=== PATIENT | female | born 1955 | race Caucasian/White ===

== ENCOUNTER → 2017-04-10 | Outpatient (CLI) | payer OTHER ==
[~2017-04-10] MED LIST: FLEXERIL10 MG PO; HYDROCODONE BIT1 T11 PO; KEFLEX500 MG PO; MEDROL DOSEPAK4 MG PO; MOTRIN800 MG PO; VICODIN ES 7501 TAB PO
== END | disposition home or self-care (01) ==
LOC: MAMMO 11:46
DX: Z12.31 Encounter for screening mammogram for malignant neoplasm of breast (principal)

== ENCOUNTER 2017-07-03 10:33 | Emergency (ER) | payer OTHER ==
[~2017-07-03] VITALS: Ht 162.5 cm; Wt 73.9 kg
[2017-07-03] MEDS ORDERED: LIPITOR40 MG PO (10:57)
[2017-07-03 11:04] LABS: BASO % 0.3 % (0.0-1.0); EOS # 0.1 10*3/uL (0.0-0.4); EOS % 1.1 % (1.0-4.0); HEMATOCRIT 40.5 % (37.0-47.0); HEMOGLOBIN 13.6 g/dl (12.0-16.0); LYMPH # 2.8 10*3/uL (1.3-4.4); LYMPH % 23.9 % (27.0-41.0); MEAN CELL VOLUME 93.3 fl (81.0-99.0); MEAN CORPUSCULAR HGB 31.3 pg (27.0-31.0); MEAN CORPUSCULAR HGB CONC 33.6 g/dl (33.0-37.0); MEAN PLATELET VOLUME 11.3 fl (9.6-12.3); MONO # 0.6 10*3/uL (0.1-1.0); MONO % 5.5 % (3.0-9.0); NEUT # 8.1 10*3/uL (2.3-7.9); NEUT % 68.9 % (47.0-73.0); PLATELET COUNT AUTOMATED 224 10*3/uL (130-400); RED BLOOD COUNT 4.34 10*6/uL (4.10-5.10); RED CELL DISTRI WIDTH 12.9 % (0-14.5); WHITE BLOOD COUNT 11.7 10*3/uL (4.8-10.8)
[2017-07-03 11:15] LABS: PROTHROMBIN TIME 10.7 SECONDS (9.0-12.4)
[2017-07-03 11:22] LABS: ALKALINE PHOSPHATASE 68 U/L (45-117); BILIRUBIN, TOTAL 0.6 mg/dl (0.2-1.0); BUN 13 mg/dl (7-24); C-REACTIVE PROTEIN 0.53 MG/DL (0-0.3); CARBON DIOXIDE 26 mmol/L (21-32); CHLORIDE 107 mmol/L (98-107); CKMB 1.1 ng/ml (0.5-3.6); CPK 151 U/L (26-192); EST GLOM FILT AFRICAN AMERICAN > 60 ml/min; GLUCOSE 121 mg/dL (65-99); MAGNESIUM 1.9 mg/dL (1.5-2.1); POTASSIUM 3.9 mmol/L (3.5-5.1); SGOT/AST 14 IU/L (3-35); SGPT/ALT 19 U/L (12-78); SODIUM 139 mmol/L (136-145)
[2017-07-03 11:23] LABS: TROPONIN I < 0.015 ng/ml (<0.045)
[2017-07-03 12:07] LABS: BILIRUBIN NEGATIVE (NEGATIVE); BLOOD NEGATIVE (NEGATIVE); CLARITY CLEAR (CLEAR); COLOR YELLOW (YELLOW); GLUCOSE NEGATIVE (NEGATIVE); KETONE NEGATIVE (NEGATIVE); LEUKO ESTERASE TRACE (NEGATIVE); NITRITE NEGATIVE (NEGATIVE); PH 5.5 (5.0-9.0); PROTEIN NEGATIVE (NEGATIVE); SPECIFIC GRAVITY <= 1.005 (1.005-1.030); UROBILINOGEN 0.2 E.U./dl (0.2-1.0)
[2017-07-03 12:12] LABS: BACTERIA TRACE; EPITHELIAL CELLS 16-20
[2017-07-03 12:14] LABS: URINE REFLEX COMMENT YES (NO)
[2017-07-03] MEDS ORDERED: MECLIZINE HCL25 M2 PO (12:43)
== END 2017-07-03 13:16 | disposition home or self-care (01) ==
LOC: ED 10:33
PROVIDERS: Nurse Practitioner Family
DX: R42 Dizziness and giddiness (principal)

== ENCOUNTER 2018-08-12 10:59 | Emergency (ER) | payer OTHER ==
[~2018-08-12] VITALS: Ht 162.5 cm; Wt 72.6 kg
[~2018-08-12 10:59] MED LIST changes: +LIPITOR40 MG PO; +MECLIZINE HCL25 M2 PO
[2018-08-12] MEDS ORDERED: SEPTDS PO (11:05)
== END 2018-08-12 11:37 | disposition home or self-care (01) ==
LOC: ED 10:59
DX: L02.612 Cutaneous abscess of left foot (principal); R03.0 Elevated blood-pressure reading, without diagnosis of hypertension; Z79.899 Other long term (current) drug therapy

== ENCOUNTER → 2018-08-15 | Outpatient (CLI) | payer OTHER ==
[~2018-08-15] MED LIST changes: +NAPROSYN500 MG PO; +SEPTDS PO
== END | disposition home or self-care (01) ==
LOC: WOUNDCARE 03:44
DX: S90.422A Blister (nonthermal), left great toe, initial encounter (principal); E78.00 Pure hypercholesterolemia, unspecified; F17.200 Nicotine dependence, unspecified, uncomplicated; Z90.710 Acquired absence of both cervix and uterus; X58.XXXA Exposure to other specified factors, initial encounter; Y93.89 Activity, other specified; Y92.89 Other specified places as the place of occurrence of the external cause; Y99.8 Other external cause status

== ENCOUNTER → 2018-08-21 | Outpatient (CLI) | payer OTHER | END | disposition home or self-care (01) | LOC: MAMMO 08:48 | DX: Z12.31 Encounter for screening mammogram for malignant neoplasm of breast (principal) ==

== ENCOUNTER → 2018-08-22 | Outpatient (CLI) | payer OTHER | END | disposition home or self-care (01) | LOC: WOUNDCARE 00:32 | DX: S90.422D Blister (nonthermal), left great toe, subsequent encounter (principal); L03.032 Cellulitis of left toe; E78.00 Pure hypercholesterolemia, unspecified; F17.200 Nicotine dependence, unspecified, uncomplicated; Z90.710 Acquired absence of both cervix and uterus; X58.XXXD Exposure to other specified factors, subsequent encounter ==

== ENCOUNTER 2018-08-28 09:18 | Emergency (ER) | payer OTHER ==
[~2018-08-28] VITALS: Wt 72.6 kg
[~2018-08-28 09:18] MED LIST changes: -NAPROSYN500 MG PO
[2018-08-28] MEDS ORDERED: NAPROSYN500 MG PO (09:49)
== END 2018-08-28 11:39 | disposition home or self-care (01) ==
LOC: ED 09:18
DX: M19.071 Primary osteoarthritis, right ankle and foot (principal); M79.2 Neuralgia and neuritis, unspecified; Z79.899 Other long term (current) drug therapy

== ENCOUNTER 2019-01-16 08:54 | Emergency (ER) | payer OTHER ==
[~2019-01-16] VITALS: Ht 162.5 cm; Wt 72.6 kg
[~2019-01-16 08:54] MED LIST changes: +NAPROSYN500 MG PO
[2019-01-16] MEDS ORDERED: CLINDAMYCIN HC300 MG PO (09:47)
[2019-01-16] MEDS ORDERED: MEDROL DOSEPAK4 MG PO (09:47)
[2019-01-29] MEDS ORDERED: PREDNISONE20 M1 PO (10:31)
[2019-01-29] MEDS ORDERED: BENADRYL25 M2 PO (10:31)
[2019-01-29] MEDS ORDERED: LIDEX 0.05% CRE15 GM T (10:31)
== END 2019-01-16 10:15 | disposition home or self-care (01) ==
LOC: ED 08:54
DX: S00.261A Insect bite (nonvenomous) of right eyelid and periocular area, initial encounter (principal); S40.862A Insect bite (nonvenomous) of left upper arm, initial encounter; S40.861A Insect bite (nonvenomous) of right upper arm, initial encounter; L03.213 Periorbital cellulitis; Z79.899 Other long term (current) drug therapy; W57.XXXA Bitten or stung by nonvenomous insect and other nonvenomous arthropods, initial encounter; Y93.89 Activity, other specified; Y92.89 Other specified places as the place of occurrence of the external cause; Y99.9 Unspecified external cause status

== ENCOUNTER 2019-04-28 00:23 | Emergency (ER) | payer OTHER ==
[~2019-04-28] VITALS: Ht 162.5 cm; Wt 81.6 kg
[~2019-04-28 00:23] MED LIST changes: +BENADRYL25 M2 PO; +CLINDAMYCIN HC300 MG PO; +LIDEX 0.05% CRE15 GM T; +PREDNISONE20 M1 PO
[2019-04-28 01:42] LABS: BASO # 0.1 10*3/uL (0.0-0.1); BASO % 0.6 % (0.0-1.0); EOS # 0.3 10*3/uL (0.0-0.4); HEMATOCRIT 38.7 % (37.0-47.0); HEMOGLOBIN 12.8 g/dl (12.0-16.0); LYMPH # 3.3 10*3/uL (1.3-4.4); LYMPH % 35.6 % (27.0-41.0); MEAN CELL VOLUME 95.8 fl (81.0-99.0); MEAN CORPUSCULAR HGB 31.7 pg (27.0-31.0); MEAN CORPUSCULAR HGB CONC 33.1 g/dl (33.0-37.0); MEAN PLATELET VOLUME 11.1 fl (9.6-12.3); MONO # 0.9 10*3/uL (0.1-1.0); NEUT # 4.7 10*3/uL (2.3-7.9); NEUT % 50.5 % (47.0-73.0); PLATELET COUNT AUTOMATED 210 10*3/uL (130-400); RED BLOOD COUNT 4.04 10*6/uL (4.10-5.10); RED CELL DISTRI WIDTH 12.6 % (0-14.5); WHITE BLOOD COUNT 9.3 10*3/uL (4.8-10.8)
[2019-04-28 01:57] LABS: ALBUMIN 3.8 gm/dl (3.1-4.5); ALKALINE PHOSPHATASE 62 U/L (45-117); BUN 11 mg/dl (7-24); CHLORIDE 108 mmol/L (98-107); POTASSIUM 3.6 mmol/L (3.5-5.1); SGOT/AST 12 IU/L (3-35); SGPT/ALT 18 U/L (12-78); SODIUM 142 mmol/L (136-145); TOTAL PROTEIN 6.7 gm/dL (6.4-8.2)
[2019-04-28] MEDS ORDERED: PENICILLIN-VK500 MG PO (04:31)
== END 2019-04-28 04:56 | disposition home or self-care (01) ==
LOC: ED 00:23
PROVIDERS: Nurse Practitioner Family
DX: K04.7 Periapical abscess without sinus (principal); M19.90 Unspecified osteoarthritis, unspecified site; Z88.1 Allergy status to other antibiotic agents; Z79.899 Other long term (current) drug therapy

== ENCOUNTER 2019-11-01 08:39 | Emergency (ER) | payer OTHER ==
[~2019-11-01] VITALS: Ht 162.5 cm; Wt 73.5 kg
[~2019-11-01 08:39] MED LIST changes: +PENICILLIN-VK500 MG PO
[2019-11-01] MEDS ORDERED: MEDROL DOSEPAK4 MG PO (10:16)
[2019-11-01] MEDS ORDERED: Motrin,Rufen800 MG PO (10:16)
== END 2019-11-01 10:19 | disposition home or self-care (01) ==
LOC: ED 08:39
DX: M19.90 Unspecified osteoarthritis, unspecified site (principal); M79.641 Pain in right hand; M79.642 Pain in left hand; E78.00 Pure hypercholesterolemia, unspecified; F17.200 Nicotine dependence, unspecified, uncomplicated; Z88.1 Allergy status to other antibiotic agents; Z79.899 Other long term (current) drug therapy

== ENCOUNTER 2019-11-16 08:35 | Emergency (ER) | payer OTHER ==
[~2019-11-16] VITALS: Ht 162.5 cm; Wt 74.8 kg
[~2019-11-16 08:35] MED LIST changes: +Motrin,Rufen800 MG PO
[2019-11-16 09:25] LABS: BASO # 0.1 10*3/uL (0.0-0.1); BASO % 0.4 % (0.0-1.0); EOS # 0.3 10*3/uL (0.0-0.4); HEMATOCRIT 41.9 % (37.0-47.0); HEMOGLOBIN 13.8 g/dl (12.0-16.0); LYMPH # 2.3 10*3/uL (1.3-4.4); LYMPH % 15.9 % (27.0-41.0); MEAN CELL VOLUME 95.2 fl (81.0-99.0); MEAN CORPUSCULAR HGB 31.4 pg (27.0-31.0); MEAN CORPUSCULAR HGB CONC 32.9 g/dl (33.0-37.0); MEAN PLATELET VOLUME 11.1 fl (9.6-12.3); MONO # 1.3 10*3/uL (0.1-1.0); MONO % 9.1 % (3.0-9.0); NEUT # 10.2 10*3/uL (2.3-7.9); NEUT % 72.2 % (47.0-73.0); PLATELET COUNT AUTOMATED 216 10*3/uL (130-400); RED CELL DISTRI WIDTH 13.2 % (0-14.5); WHITE BLOOD COUNT 14.1 10*3/uL (4.8-10.8)
[2019-11-16 09:40] LABS: ALBUMIN 4.1 gm/dl (3.1-4.5); ALKALINE PHOSPHATASE 72 U/L (45-117); BUN 12 mg/dl (7-24); CHLORIDE 109 mmol/L (98-107); CREATININE 0.87 mg/dL (0.55-1.02); POTASSIUM 4.1 mmol/L (3.5-5.1); SGOT/AST 10 IU/L (3-35); SGPT/ALT 28 U/L (12-78); SODIUM 141 mmol/L (136-145); TOTAL PROTEIN 7.8 gm/dL (6.4-8.2); URIC ACID 5.6 mg/dL (2.6-6.0)
[2019-11-16] MEDS ORDERED: PREDNISONE10 MG PO (11:31)
[2019-11-16] MEDS ORDERED: NORCO 5-325 TA1 EACH PO (11:31)
== END 2019-11-16 11:24 | disposition home or self-care (01) ==
LOC: ED 08:35
PROVIDERS: Emergency Medicine
DX: M19.042 Primary osteoarthritis, left hand (principal); M19.041 Primary osteoarthritis, right hand; J45.901 Unspecified asthma with (acute) exacerbation; E78.00 Pure hypercholesterolemia, unspecified; Z88.1 Allergy status to other antibiotic agents; Z79.2 Long term (current) use of antibiotics; Z79.899 Other long term (current) drug therapy

== ENCOUNTER 2019-12-17 12:11 | Emergency (ER) | payer OTHER ==
[~2019-12-17] VITALS: Ht 162.5 cm; Wt 74.8 kg
[~2019-12-17 12:11] MED LIST changes: +NORCO 5-325 TA1 EACH PO; +PREDNISONE10 MG PO
[2019-12-17] MEDS ORDERED: MEDROL DOSEPAK4 MG PO (12:52)
== END 2019-12-17 12:56 | disposition home or self-care (01) ==
LOC: ED 12:11
DX: M19.90 Unspecified osteoarthritis, unspecified site (principal); E78.00 Pure hypercholesterolemia, unspecified; Z79.899 Other long term (current) drug therapy; Z88.1 Allergy status to other antibiotic agents; Z79.2 Long term (current) use of antibiotics; Z90.710 Acquired absence of both cervix and uterus

== ENCOUNTER → 2020-12-15 | Outpatient (CLI) | payer BC ==
[2020-12-15 10:59] LABS: BILIRUBIN Negative (Negative); BLOOD Negative (Negative); CLARITY Clear (Clear); COLOR Yellow (Yellow); GLUCOSE Negative (Negative); KETONE Negative (Negative); LEUKO ESTERASE Negative (Negative); NITRITE Negative (Negative); PH 5.5 (4.5-8.0); SPECIFIC GRAVITY <= 1.005 (1.001-1.030); UROBILINOGEN 0.2 E.U./dl (0.0-1.0)
[2020-12-15 11:04] LABS: BASO # 0.1 10*3/uL (0.0-0.1); BASO % 0.7 % (0.0-1.0); EOS # 0.2 10*3/uL (0.0-0.4); EOS % 2.2 % (1.0-4.0); HEMATOCRIT 43.7 % (37.0-47.0); LYMPH # 2.7 10*3/uL (1.3-4.4); LYMPH % 31.4 % (27.0-41.0); MEAN CELL VOLUME 94.2 fl (81.0-99.0); MEAN CORPUSCULAR HGB 29.5 pg (27.0-31.0); MEAN CORPUSCULAR HGB CONC 31.4 g/dl (33.0-37.0); MEAN PLATELET VOLUME 11.4 fl (9.6-12.3); MONO # 0.7 10*3/uL (0.1-1.0); NEUT % 57.4 % (47.0-73.0); PLATELET COUNT AUTOMATED 241 10*3/uL (130-400); RED BLOOD COUNT 4.64 10*6/uL (4.10-5.10); RED CELL DISTRI WIDTH 12.9 % (0-14.5); RETICULOCYTE % 1.41 % (0.50-2.50); WHITE BLOOD COUNT 8.6 10*3/uL (4.8-10.8)
[2020-12-15 11:28] LABS: ALBUMIN 3.9 gm/dl (3.1-4.5); ALKALINE PHOSPHATASE 87 U/L (45-117); BUN 12 mg/dl (7-24); CHLORIDE 108 mmol/L (98-107); CHOLESTEROL 173 mg/dL (<200); CREATININE 0.82 mg/dL (0.55-1.02); GAMMA GLUTAMYL TRANSPEPTIDASE 23 U/L (5-55); HDL CHOLESTEROL 51 mg/dl (40-60); IRON 69 ug/dL (50-170); LDL CHOLESTEROL 86 mg/dL (9-159); POTASSIUM 4.1 mmol/L (3.5-5.1); SGOT/AST 10 IU/L (3-35); SGPT/ALT 27 U/L (12-78); SODIUM 140 mmol/L (136-145); TOTAL IRON BINDING CAPACITY 337 ug/dl (250-450); TOTAL PROTEIN 7.2 gm/dL (6.4-8.2); TRIGLYCERIDES 182 mg/dl (<150); VLDL CHOLESTEROL 36 mg/dL (6-40)
[2020-12-15 11:34] LABS: CPK 133 U/L (26-192)
[2020-12-15 12:16] LABS: BACTERIA 1+
[2020-12-15 12:43] LABS: FERRITIN 143.8 ng/mL (10.0-291.0); VITAMIN D, 25-HYDROXY 38.2 ng/mL (30-100)
== END | disposition home or self-care (01) ==
LOC: LAB 10:24
PROVIDERS: ATTEND Family Medicine
DX: E78.5 Hyperlipidemia, unspecified (principal); E55.9 Vitamin D deficiency, unspecified; R53.83 Other fatigue; R79.89 Other specified abnormal findings of blood chemistry

== ENCOUNTER → 2022-04-19 | Outpatient (CLI) | payer BC ==
[2022-04-19 10:43] LABS: BILIRUBIN Negative (Negative); BLOOD Negative (Negative); CLARITY Cloudy (Clear); COLOR Yellow (Yellow); GLUCOSE Negative (Negative); KETONE Negative (Negative); LEUKO ESTERASE Negative (Negative); NITRITE Negative (Negative); UROBILINOGEN 0.2 E.U./dl (0.0-1.0)
[2022-04-19 10:44] LABS: BASO # 0.1 10*3/uL (0.0-0.1); BASO % 0.6 % (0.0-1.0); EOS # 0.2 10*3/uL (0.0-0.4); EOS % 1.5 % (1.0-4.0); LYMPH # 2.6 10*3/uL (1.3-4.4); LYMPH % 24.9 % (27.0-41.0); MEAN CELL VOLUME 93.1 fl (81.0-99.0); MEAN CORPUSCULAR HGB 30.5 pg (27.0-31.0); MEAN CORPUSCULAR HGB CONC 32.8 g/dl (33.0-37.0); MEAN PLATELET VOLUME 11.4 fl (9.6-12.3); MONO # 0.8 10*3/uL (0.1-1.0); MONO % 7.3 % (3.0-9.0); NEUT # 6.7 10*3/uL (2.3-7.9); NEUT % 65.2 % (47.0-73.0); PLATELET COUNT AUTOMATED 246 10*3/uL (130-400); RED BLOOD COUNT 4.62 10*6/uL (4.10-5.10); RED CELL DISTRI WIDTH 13.1 % (0-14.5); RETICULOCYTE % 1.57 % (0.50-2.50); WHITE BLOOD COUNT 10.2 10*3/uL (4.8-10.8)
[2022-04-19 11:02] LABS: BUN 12 mg/dl (7-24); CHLORIDE 108 mmol/L (98-107); CHOLESTEROL 171 mg/dL (<200); GAMMA GLUTAMYL TRANSPEPTIDASE 23 U/L (5-55); POTASSIUM 4.5 mmol/L (3.5-5.1); SODIUM 140 mmol/L (136-145); TRIGLYCERIDES 166 mg/dl (<150)
[2022-04-19 11:08] LABS: ALKALINE PHOSPHATASE 73 U/L (45-117); CREATININE 0.83 mg/dL (0.55-1.02); IRON 106 ug/dL (50-170); LDL CHOLESTEROL 92 mg/dL (9-159); SGOT/AST 18 IU/L (3-35); SGPT/ALT 26 U/L (12-78); TOTAL IRON BINDING CAPACITY 302 ug/dl (250-450)
[2022-04-19 11:09] LABS: BACTERIA 3+; EPITHELIAL CELLS 21-30
[2022-04-19 12:34] LABS: FERRITIN 119.1 ng/mL (10.0-291.0); VITAMIN D, 25-HYDROXY 43.8 ng/mL (30-100)
== END | disposition home or self-care (01) ==
LOC: LAB 10:14
PROVIDERS: ATTEND Family Medicine
DX: R53.83 Other fatigue (principal); R79.89 Other specified abnormal findings of blood chemistry; E78.5 Hyperlipidemia, unspecified; E55.9 Vitamin D deficiency, unspecified

== ENCOUNTER → 2023-01-04 | Outpatient (CLI) | payer BC ==
[2023-01-04 09:25] LABS: BASO # 0.1 10*3/uL (0.0-0.1); BASO % 0.6 % (0.0-1.0); EOS # 0.2 10*3/uL (0.0-0.4); EOS % 1.9 % (1.0-4.0); HEMATOCRIT 43.5 % (37.0-47.0); LYMPH # 2.4 10*3/uL (1.3-4.4); LYMPH % 22.7 % (27.0-41.0); MEAN CORPUSCULAR HGB 31.1 pg (27.0-31.0); MEAN CORPUSCULAR HGB CONC 33.1 g/dl (33.0-37.0); MEAN PLATELET VOLUME 11.7 fl (9.6-12.3); MONO # 0.9 10*3/uL (0.1-1.0); MONO % 8.6 % (3.0-9.0); NEUT # 6.8 10*3/uL (2.3-7.9); PLATELET COUNT AUTOMATED 227 10*3/uL (130-400); RED BLOOD COUNT 4.63 10*6/uL (4.10-5.10); RED CELL DISTRI WIDTH 13.2 % (0-14.5); RETICULOCYTE % 1.64 % (0.50-2.50); WHITE BLOOD COUNT 10.4 10*3/uL (4.8-10.8)
[2023-01-04 09:35] LABS: BILIRUBIN Negative (Negative); BLOOD Negative (Negative); CLARITY Clear (Clear); COLOR Yellow (Yellow); GLUCOSE Negative (Negative); KETONE Negative (Negative); LEUKO ESTERASE Negative (Negative); NITRITE Negative (Negative); SPECIFIC GRAVITY 1.015 (1.001-1.030); UROBILINOGEN 0.2 E.U./dl (0.0-1.0)
[2023-01-04 09:45] LABS: ALKALINE PHOSPHATASE 71 U/L (46-116); BUN 14 mg/dl (9-23); CHLORIDE 107 mmol/L (98-107); CHOLESTEROL 149 mg/dL (<200); GAMMA GLUTAMYL TRANSPEPTIDASE 19 U/L (0-73); LDL CHOLESTEROL 86 mg/dL (9-159); POTASSIUM 4.4 mmol/L (3.4-5.1); SGPT/ALT 23 U/L (10-49); THYROID STIM HORMONE (HS) 0.605 uIU/ml (0.550-4.780); TOTAL PROTEIN 6.9 gm/dL (6.0-8.0); TRIGLYCERIDES 102 mg/dl (<150)
[2023-01-04 09:50] LABS: BACTERIA 1+; EPITHELIAL CELLS 21-30; RBC 0-2 rbc/hpf (0-2); WBC 0-2 wbc/hpf (0-5)
[2023-01-04 10:23] LABS: VITAMIN D, 25-HYDROXY 52.9 ng/mL (30-100)
== END | disposition home or self-care (01) ==
LOC: LAB 08:58
PROVIDERS: ATTEND Family Medicine
DX: E78.5 Hyperlipidemia, unspecified (principal); E55.9 Vitamin D deficiency, unspecified; R79.89 Other specified abnormal findings of blood chemistry; R53.83 Other fatigue; R74.8 Abnormal levels of other serum enzymes

== ENCOUNTER 2024-12-24 13:31 | Emergency (ER) | payer MEDICARE ==
[~2024-12-24] VITALS: Wt 74.8 kg
[2024-12-24] MEDS ORDERED: Dexamethasone Sodium Phospha 20 MG/5 ML VIAL IV ONE (14:35)
[2024-12-24] MEDS ORDERED: diphenhydrAMINE hydrochloride 50 MG/ML VIAL IV ONE (14:35)
[2024-12-24] MEDS ORDERED: FAMOTIDINE 50 ML IV ONE (14:35)
[2024-12-24] MEDS ORDERED: VITAMIN D325 MCG PO (14:46)
[2024-12-24 14:56] LABS: HEMATOCRIT 40.5 % (37.0-47.0); MEAN CELL VOLUME 94.6 fl (81.0-99.0); MEAN CORPUSCULAR HGB 30.6 pg (27.0-31.0); MEAN CORPUSCULAR HGB CONC 32.3 g/dl (33.0-37.0); MEAN PLATELET VOLUME 10.5 fl (9.6-12.3); PLATELET COUNT AUTOMATED 289 10*3/uL (130-400); RED BLOOD COUNT 4.28 10*6/uL (4.10-5.10); RED CELL DISTRI WIDTH 13.5 % (0-14.5); WHITE BLOOD COUNT 22.5 10*3/uL (4.8-10.8)
[2024-12-24 14:57] LABS: MANUAL DIFF REFLEX YES
[2024-12-24 15:29] LABS: ATYPICAL LYMPHS 1 % (0-0); BURR CELLS FEW; PLATELET SUFFICIENCY NORMAL (NORMAL); TOTAL CELLS COUNTED 100 #CELLS
[2024-12-24 15:53] LABS: BUN 20 mg/dl (9-23); CHLORIDE 105 mmol/L (98-107); POTASSIUM 3.3 mmol/L (3.4-5.1)
[2024-12-24] MEDS ORDERED: EPINEPHrine Hydrochloride 1 MG/ML AMP SC ONE (16:10)
[2024-12-24] MEDS ORDERED: EPIPEN 2-P0.3 MG/0.3 IJ (17:34)
== END 2024-12-24 17:47 | disposition home or self-care (01) ==
LOC: ED 13:31
PROVIDERS: Internal Medicine
DX: T78.2XXA Anaphylactic shock, unspecified, initial encounter (principal); L50.9 Urticaria, unspecified; Z88.1 Allergy status to other antibiotic agents; Z90.710 Acquired absence of both cervix and uterus; Z98.890 Other specified postprocedural states; Z87.891 Personal history of nicotine dependence

== ENCOUNTER 2024-12-26 06:50 | Emergency (ER) | payer MEDICARE ==
[~2024-12-26] VITALS: Ht 162.6 cm; Wt 95.7 kg
[~2024-12-26 06:50] MED LIST changes: +EPIPEN 2-P0.3 MG/0.3 IJ; +VITAMIN D325 MCG PO
[2024-12-26] MEDS ORDERED: MAGNESIUM SULFATE 50 ML IV ONE (07:15)
[2024-12-26] MEDS ORDERED: FAMOTIDINE 50 ML IV ONE (07:15)
[2024-12-26] MEDS ORDERED: methylPREDNISolone sod succ 125 MG VIAL IV ONE (07:15)
[2024-12-26] MEDS ORDERED: Albuterol Sulfate 2.5 MG/3 ML VIAL NEB ONE (07:15)
[2024-12-26 07:38] LABS: BASO % 0.2 % (0.0-1.0); EOS # 0.2 10*3/uL (0.0-0.4); EOS % 1.3 % (1.0-4.0); HEMATOCRIT 39.5 % (37.0-47.0); MEAN CELL VOLUME 94.3 fl (81.0-99.0); MEAN CORPUSCULAR HGB 30.5 pg (27.0-31.0); MEAN CORPUSCULAR HGB CONC 32.4 g/dl (33.0-37.0); MEAN PLATELET VOLUME 10.7 fl (9.6-12.3); MONO # 1.4 10*3/uL (0.1-1.0); NEUT # 11.1 10*3/uL (2.3-7.9); NEUT % 63.5 % (47.0-73.0); PLATELET COUNT AUTOMATED 267 10*3/uL (130-400); RED BLOOD COUNT 4.19 10*6/uL (4.10-5.10); RED CELL DISTRI WIDTH 13.8 % (0-14.5); WHITE BLOOD COUNT 17.4 10*3/uL (4.8-10.8)
[2024-12-26 08:08] LABS: BUN 22 mg/dl (9-23); CHLORIDE 107 mmol/L (98-107); POTASSIUM 3.8 mmol/L (3.4-5.1)
[2024-12-26] MEDS ORDERED: PREDNISONE20 M1 PO (08:24)
[2024-12-26] MEDS ORDERED: AVPAK AZITHROM250 M1 PO (08:24)
== END 2024-12-26 09:10 | disposition home or self-care (01) ==
LOC: ED 06:50
PROVIDERS: Emergency Medicine
DX: J45.901 Unspecified asthma with (acute) exacerbation (principal); I10 Essential (primary) hypertension; F17.210 Nicotine dependence, cigarettes, uncomplicated; Z88.1 Allergy status to other antibiotic agents; Z90.710 Acquired absence of both cervix and uterus; Z98.890 Other specified postprocedural states

== ENCOUNTER 2025-01-06 01:23 | Emergency (ER) | payer MEDICARE ==
[~2025-01-06] VITALS: Ht 162.5 cm; Wt 77.1 kg
[~2025-01-06 01:23] MED LIST changes: +AVPAK AZITHROM250 M1 PO
[2025-01-06] MEDS ORDERED: methylPREDNISolone sod succ 125 MG VIAL IM ONE (02:35)
[2025-01-06] MEDS ORDERED: MG-AL HYDROXIDE/SIMETICONE 30 ML UDC PO STA (02:35)
[2025-01-06] MEDS ORDERED: Lidocaine Hydrochloride 15 ML UDC PO STA (02:35)
[2025-01-06] MEDS ORDERED: Dicyclomine Hydrochloride 20 MG/10 ML OSYR PO STA (02:35)
[2025-01-06] MEDS ORDERED: PREDNISONE20 M1 PO (04:08)
== END 2025-01-06 04:33 | disposition home or self-care (01) ==
LOC: ED 01:23
DX: J02.9 Acute pharyngitis, unspecified (principal); E78.00 Pure hypercholesterolemia, unspecified; Z88.1 Allergy status to other antibiotic agents; Z90.710 Acquired absence of both cervix and uterus; Z98.890 Other specified postprocedural states